=== PATIENT | male | born 1940 | race Caucasian/White ===

== ENCOUNTER 2020-01-08 08:52 | Day surgery (SDC) | payer MEDICARE, OTHER ==
[2020-01-08] VITALS (16 sets, daily range): BP systolic 128–179; BP diastolic 55–98; PULSE 66–91; TEMP 97.6–98.2
[~2020-01-08] VITALS: Ht 170.2 cm; Wt 92.1 kg
[~2020-01-08 08:52] MED LIST: DOXAZOCIN PO; MACRODANTIN PO; OTC ACID REDUCER
[2020-01-08] MEDS ORDERED: PRINIVIL20 MG PO (10:09)
[2020-01-08] MEDS ORDERED: ASPIRIN E.C. 8181 MG PO (10:10)
[2020-01-08] MEDS ORDERED: NATURAL IRON65 MG PO (10:10)
--- NOTE | 2020-01-08 14:45 | NUR ---
Patient arrived to floor at approximately 1415. Patient was alert and oriented but drowsy, roused easily. Post op checks initated. Patient denied pain, call light within reach.
--- NOTE | 2020-01-08 17:48 | NUR ---
Patient currently resting in bed eating dinner and watching television. Output from nephrostomy tube is clear and pale yellow, no bleeding noted. Patient denies pain. VS are WNL. Patient denies needs at this time, call light within reach.
--- NOTE | 2020-01-08 20:30 | NUR ---
Pt. sitting up in bed at this time. Pt. is A&XO3, assessment complete. INT to lt. forearm patent. Pt. reports pain at a 5 on pain scale, gave pain meds per orders. Pt. voiding clear yellow urine. Pt. also has nephrostomy tube to lt. side, clear yellow urine noted. Pt. denies further needs, call light within reach.
[2020-01-09 00:03] VITALS: BP 129/63; PULSE 75; TEMP 98
[2020-01-09 03:25] VITALS: BP 121/47; PULSE 89; TEMP 98.5
[2020-01-09 08:36] VITALS: BP 164/68; PULSE 91; TEMP 98.7
--- NOTE | 2020-01-09 11:40 | NUR ---
Patient is discharging home. Discharge instructions discussed with patient. No questions verbalized. Patient was is a big hurry to get home. Explained how to care for neph tube and he kept stating he knows how and does not need instructions. He stated he has a family full of nurses and anesthesia who will be calling him. Patient removed his own IV. He did demonstrate how to empty his drain. No other changes at this time. Dr Beckwith told patient the office will call with follow up appointment and to finish his antibiotic at home. Patient walked out with this nurse. All belongings sent with patient.
== END 2020-01-09 11:40 | disposition home or self-care (01) ==
LOC: SDCO 08:52 → SURG 14:15 → SDCO 01-09 11:40
DX: N13.1 Hydronephrosis with ureteral stricture, not elsewhere classified (principal); R10.12 Left upper quadrant pain; Z20.828 Contact with and (suspected) exposure to other viral communicable diseases; I10 Essential (primary) hypertension; K21.9 Gastro-esophageal reflux disease without esophagitis; K57.90 Diverticulosis of intestine, part unspecified, without perforation or abscess without bleeding; N40.0 Benign prostatic hyperplasia without lower urinary tract symptoms; Z96.653 Presence of artificial knee joint, bilateral; Z85.51 Personal history of malignant neoplasm of bladder; Z91.041 Radiographic dye allergy status; Z79.899 Other long term (current) drug therapy; Z90.49 Acquired absence of other specified parts of digestive tract; Z86.14 Personal history of Methicillin resistant Staphylococcus aureus infection
CPT/HCPCS: OP; C1769; J0690; J1100; J2250; J2405; J2704; J3010; J7120; Q9967

== ENCOUNTER 2020-01-27 06:10 | Day surgery (SDC) | payer MEDICARE, OTHER ==
[~2020-01-27] VITALS: Ht 172.7 cm; Wt 91.4 kg
[2020-01-27] VITALS (24 sets, daily range): BP systolic 89–170; BP diastolic 50–89; PULSE 56–87; TEMP 97.8–98.6
[~2020-01-27 06:10] MED LIST changes: +ASPIRIN E.C. 8181 MG PO; +NATURAL IRON65 MG PO; +PRINIVIL20 MG PO
--- NOTE | 2020-01-27 10:38 | NUR ---
Pt into procedure room. Pt postitioned on table in prone position. Monitors applied. O2 on at 2l/nc.
--- NOTE | 2020-01-27 11:05 | NUR ---
guidewire kinked and when straightened out pt vasovagaled due to pain. Dr Sawyer questions pt to see if he would like pain meds. Fentanyl given per order.
--- NOTE | 2020-01-27 11:10 | NUR ---
pt placed in slight trendelenburg, pt sweaty, LR at [facility].
--- NOTE | 2020-01-27 13:55 | NUR ---
PT RETURNED FROM RADIOLOGY FOR THE GUIDED WIRE PROCEDURE. RADIOLOGY STAFF REPORTED PT HAD A VASOVAGAL RESPONSE WHEN WIRE WAS PLACED. PT WAS CAME BACK ALERT AND SLEEPY. O2 ON AT 2L MAINTAINING SATS BETWEEN 99-100% DENIES PAIN AT THIS TIME. LEFT POSTERIOR FLANK DRESSING DRY AND INTACT. WILL CONT TO MONIOR PROGRESS.
--- NOTE | 2020-01-27 14:03 | NUR ---
PT MAINTAINING SATS BETWEEN 99-100% ON 1LO2. PT AWAKE AND ORIENTATED. LEFT FLANK DRESSING REMAINS DRY AND INTACT. PT UP TO THE BATHROOM AND VOIDED WITHOUT DIFFICULTY PT STATED. WILL CONT TO MONITOR.
--- NOTE | 2020-01-27 19:50 | NUR ---
Pt currently resting in bed. Pt was going to go home but stated that his ride was not able to come get him tongiht. He stated that he would stay the night and have his ride come get him in the am. Pt has his call light wtihin reach.
--- NOTE | 2020-01-28 00:30 | NUR ---
Pt resting in bed. Pt has no compliants of pain. Pt has been independent in his room. He has his call light within reach.
[2020-01-28 04:10] VITALS: BP 126/59; PULSE 76; TEMP 98
--- NOTE | 2020-01-28 07:15 | NUR ---
Reported off to MECCA Branch. Pt has his call light within reach.
[2020-01-28 07:19] VITALS: BP 142/71; PULSE 67; TEMP 98.1
--- NOTE | 2020-01-28 08:54 | NUR ---
Discharge instructions reviewed with patient, verbalized understanding. Discharged ambulatory to auto/home with friend at [id number]
== END 2020-01-28 08:44 | disposition home or self-care (01) ==
LOC: SDCO 06:10 → EDSTATUS 06:30 → COL.RAD 06:30 → SDCO 06:30 → SURG 17:10 → SDCO 01-28 08:44
DX: N13.1 Hydronephrosis with ureteral stricture, not elsewhere classified (principal); I10 Essential (primary) hypertension; R12 Heartburn; K21.9 Gastro-esophageal reflux disease without esophagitis; N40.0 Benign prostatic hyperplasia without lower urinary tract symptoms; Z79.899 Other long term (current) drug therapy; Z91.041 Radiographic dye allergy status; Z85.51 Personal history of malignant neoplasm of bladder; Z96.653 Presence of artificial knee joint, bilateral
CPT/HCPCS: OP; C1726; J2405; J2704; J3010; J7120; Q9967

== ENCOUNTER → 2021-11-10 | Outpatient (CLI) | payer MEDICARE, OTHER | LOC: COL.RAD 11:12 | DX: Z85.51 Personal history of malignant neoplasm of bladder (principal) | CPT/HCPCS: A9562; J1940 ==